=== PATIENT | female | born 1950 | race Caucasian/White ===

== ENCOUNTER 2017-03-26 19:24 | Emergency (ER) | payer MEDICARE ==
[~2017-03-26] VITALS: Ht 152.4 cm; Wt 44.5 kg
[2017-03-26 19:31] VITALS: BP 130/80
--- NOTE | 2017-03-26 19:40 | NUR ---
TO BED 7 A 66 YO FEMALE PATIENT BIBSELF C/O "DRY COUGH AND CONGESTION" X 1 WEEK. VSS. NAD NOTED. AMBULATORY. GOWNED. COMFORT MEASURES RENDERED.
[2017-03-26 19:50] LABS: BASOPHILS % (AUTO) 0.8 % (0.0-2.0); EOSINOPHILS # (AUTO) 0.2 /CMM (0.0-0.7); EOSINOPHILS % (AUTO) 2.8 % (0.0-6.0); HEMATOCRIT 36 % (33-45); HEMOGLOBIN 12.4 g/dL (11.5-14.8); LYMPHOCYTES # (AUTO) 1.9 /CMM (0.8-4.8); LYMPHOCYTES % (AUTO) 32.1 % (20.0-44.0); MEAN CORPUSCULAR HEMOGLOBIN 31 PG (26.0-33.0); MEAN CORPUSCULAR HGB CONC 34 g/dl (31.0-36.0); MEAN CORPUSCULAR VOLUME 90 fL (82-100); MONOCYTES # (AUTO) 0.5 /CMM (0.1-1.30); MONOCYTES % (AUTO) 8.8 % (2.0-12.0); NEUTROPHILS # (AUTO) 3.4 /CMM (1.8-8.9); NEUTROPHILS % (AUTO) 55.5 % (43.0-81.0); PLATELET COUNT (AUTO) 295 /CMM (150-450); RED BLOOD CELL COUNT(AUTO) 4.03 MIL/uL (4.0-5.2)
[2017-03-26 20:01] LABS: CALCIUM, SERUM 9.2 mg/dL (8.5-10.1); CARBON DIOXIDE 29 mmol/L (21-32); CHLORIDE 105 mmol/L (98-107); CREATININE 0.9 mg/dL (0.6-1.3); GLUCOSE 117 mg/dL (74-106); POTASSIUM 3.8 mmol/L (3.5-5.1); SODIUM SERUM 139 mmol/L (136-145); UREA NITROGEN, BLOOD 23 mg/dL (7-18)
[2017-03-26 20:10] LABS: TROPONIN I < 0.017 ng/mL (0.00-0.056)
== END 2017-03-26 20:44 | disposition home or self-care (01) ==
LOC: ER 19:29
DX: R07.89 Other chest pain (principal); K21.9 Gastro-esophageal reflux disease without esophagitis; Z88.2 Allergy status to sulfonamides; Z88.8 Allergy status to other drugs, medicaments and biological substances
CPT/HCPCS: 36415; 71010; 80048; 84484; 85025; 93005; 99285; A4606; Z7610

== ENCOUNTER 2017-03-28 05:39 | Emergency (ER) | payer MEDICARE ==
[~2017-03-28] VITALS: Ht 152.4 cm; Wt 44.5 kg
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
[2017-03-28] MEDS ORDERED: IBUPROFEN 400 MG TABLET PO ONE (07:00)
[2017-03-28] MEDS ORDERED: IBUPROFEN 400 MG TABLET ONE (07:10)
--- NOTE | 2017-03-28 07:13 | NUR ---
FLU ANTIGEN NASAL SWAB DONE AND SENT TO LAB PER MD ORDERS.
[2017-03-28 08:30] VITALS: BP 136/75
== END 2017-03-28 08:31 | disposition home or self-care (01) ==
LOC: ER 05:42
DX: B34.9 Viral infection, unspecified (principal); K21.9 Gastro-esophageal reflux disease without esophagitis; M81.0 Age-related osteoporosis without current pathological fracture; Z88.2 Allergy status to sulfonamides; Z88.8 Allergy status to other drugs, medicaments and biological substances
CPT/HCPCS: 87804 ×2; 99284; A4606; 87400; Z7610

== ENCOUNTER 2017-11-04 18:43 | Emergency (ER) | payer MEDICARE, BC ==
--- NOTE | 2017-11-04 20:15 | NUR ---
CALLED PT NAME IN WR. NO RESPONSE WILL F/U
--- NOTE | 2017-11-04 20:23 | NUR ---
CALL PT NAME IN WR X 3. NO RESPONSE AT THIS TIME. WILL F/U
--- NOTE | 2017-11-04 20:51 | NUR ---
CALLED PT NAME X 3. NO RESPONSE IN WR. WILL F/U
--- NOTE | 2017-11-04 21:00 | NUR ---
CALLED PT NAME X3. NO RESPONSE IN WAITING ROOM. PER ADMITTING PT LEFT.
== END 2017-11-04 21:44 | disposition left against medical advice (07) ==
LOC: ER 18:46
DX: Z53.21 Procedure and treatment not carried out due to patient leaving prior to being seen by health care provider (principal)

== ENCOUNTER 2022-12-06 23:33 | Emergency (ER) | payer BC, MEDICARE ==
[~2022-12-06] VITALS: Ht 149.9 cm; Wt 40.8 kg
[2022-12-07] MEDS ORDERED: ONDANSETRON HCL/PF 4 MG/2 ML VIAL ONE (00:17)
[2022-12-07] MEDS ORDERED: ONDANSETRON HCL/PF 4 MG/2 ML VIAL IVP ONE (00:30)
[2022-12-07] MEDS ORDERED: IV NS 0.9% 500 ML BAG IV ONE (00:30)
[2022-12-07 00:47] LABS: BASOPHILS % (AUTO) 0.3 % (0.0-2.0); EOSINOPHILS % (AUTO) 2.5 % (0.0-6.0); HEMATOCRIT 35 % (33-45); HEMOGLOBIN 11.7 g/dL (11.5-14.8); LYMPHOCYTES # (AUTO) 1.2 K/uL (0.8-4.8); LYMPHOCYTES % (AUTO) 12.5 % (20.0-44.0); MEAN CORPUSCULAR HGB CONC 34 g/dl (31.0-36.0); MEAN CORPUSCULAR VOLUME 92 fL (82-100); MONOCYTES # (AUTO) 0.7 K/uL (0.1-1.30); MONOCYTES % (AUTO) 7.5 % (2.0-12.0); NEUTROPHILS # (AUTO) 7.5 K/uL (1.8-8.9); NEUTROPHILS % (AUTO) 77.2 % (43.0-81.0); PLATELET COUNT (AUTO) 206 K/uL (150-450); RED BLOOD CELL COUNT(AUTO) 3.77 MIL/uL (4.0-5.2); WHITE BLOOD COUNT (AUTO) 9.7 K/uL (4.3-11.0)
[2022-12-07 01:01] LABS: ALBUMIN 3.3 g/dL (3.4-5.0); BILIRUBIN,DIRECT 0.2 mg/dL (0.0-0.2); BILIRUBIN,TOTAL 0.8 mg/dL (0.2-1.0); CALCIUM, SERUM 9.3 mg/dL (8.5-10.1); CREATININE 0.9 mg/dL (0.6-1.3); POTASSIUM 3.6 mmol/L (3.5-5.1)
[2022-12-07 02:49] VITALS: BP 105/58; TEMP 98; O2SAT 95
--- NOTE | 2022-12-07 02:49 | NUR ---
Patient discharged to home in stable condition. Written and verbal after care instructions given. Patient verbalizes understanding of instruction.IV removed. Catheter intact and site benign. Pressure and 4x4 applied to site. No bleeding noted.
== END 2022-12-07 02:49 | disposition home or self-care (01) ==
LOC: ER 23:45
DX: R55 Syncope and collapse (principal); K21.9 Gastro-esophageal reflux disease without esophagitis; Z60.2 Problems related to living alone; Z88.2 Allergy status to sulfonamides; Z88.8 Allergy status to other drugs, medicaments and biological substances
CPT/HCPCS: 99284; 96374; 93005; 85025; 80048; 80076; 36415; J2405; J7040